=== PATIENT | female | born 1990 | race Caucasian/White ===

== ENCOUNTER 2016-10-14 14:29 | Emergency (ER) | payer OTHER ==
[~2016-10-14] VITALS: Ht 162.6 cm; Wt 84.4 kg
[2016-10-14 14:34] VITALS: TEMP 36.8; Ht 162.6 cm; Wt 84.4 kg
[2016-10-14] MEDS ORDERED: ALBUTEROL HFA 8 GM INHALER INH STA (14:51)
--- NOTE | 2016-10-14 14:51 | EMERGENCY ROOM VISIT NOTE ---
History Report prepared by Norma: Fred Rome Under the Supervision of: Dr. Amanda Lay D.O. First contact with patient: 14:39 Chief Complaint: COUGH Stated Complaint: SEVERE COUGH Nursing Triage Summary: Pt c/o being sick for a week, "[facility] told me I had a nasty cold". Son had strep and pneumonia. Productive cough. History of Present Illness The patient is a 26 year old female who presents to the Emergency Room with complaints of a cough that began 1 week ago. Her cough is productive with yellow and green sputum. Her son recently had strep throat and pneumonia. She had gone to [facility], but they stated she had a cold. Her symptoms then worsened. She has been taking cough medicine and Tylenol that have not been helping. She has been experiencing fevers of 102 F, rhinorrhea, shortness of breath, nausea, and vomiting. She notes that the vomiting and nausea could be secondary to her . She is 22 weeks . She denies any sore throat. Source of History: patient Onset: 1 week ago Position: other (Respiratory System) Symptom Intensity: moderate Quality: other (Cough) Timing: intermittent Associated Symptoms: + fevers, + SOB, + nausea, + vomiting, No sorethroat Note: She has rhinorrhea. She denies any unusual bleeding. Review of Systems See HPI for pertinent positives & negatives. A total of 10 systems reviewed and were otherwise negative. Past Medical & Surgical Medical Problems: (1) Acute Tonsillitis (2) Anxiety State Nos (3) Cholelith W Cholecys Nec (4) Fx Navicular, Wrist-Clos Family History Diabetes mellitus Social History Smoking Status: Current Every Day Smoker Drug Use: none Marital Status: single Housing Status: lives with family Occupation Status: employed Current/Historical Medications Scheduled Amoxicillin & Pot Clavulanate (Augmentin 875-125 mg), 875 MG PO BID Cholecalciferol (Vitamin D), 1,000 UNITS PO DAILY Escitalopram Oxalate (Lexapro), 5 MG PO QAM Multivit/Min/Iron/Fol Ac/Pren ( Vitamin), 1 TAB PO DAILY Allergies Coded Allergies: Adhesives (Verified Allergy, Unknown, RASH, 10/14/16) Morphine (Verified Allergy, Unknown, HIVES, 10/14/16) Physical Exam Vital Signs Date Time Temp Pulse Resp B/P (MAP) Pulse Ox O2 Delivery O2 Flow Rate FiO2 6/18/17 16:37 84 20 128/69 98 Room Air 10/14/16 16:00 80 16 131/68 Room Air 10/14/16 14:36 95 Room Air 10/14/16 14:34 36.8 110 18 111/69 95 Room Air Physical Exam GENERAL: alert, well appearing, well nourished, no distress, non-toxic EYE EXAM: normal conjunctiva, PERRL and EOM's grossly intact OROPHARYNX: no exudate, no erythema, lips, buccal mucosa, and tongue normal and mucous membranes are moist NECK: supple, no nuchal rigidity, no adenopathy, non-tender LUNGS: Clear to auscultation. Normal chest wall mechanics. No wheezing, rhonchi , or rales. HEART: no murmurs, S1 normal and S2 normal ABDOMEN: abdomen soft, non-tender, normo-active bowel sounds, no masses, no rebound or guarding. Palpable fundus at about the level of the umbilicus. Consistent with dates. BACK: Back is symmetrical on inspection and there is no deformity, no midline tenderness, no CVA tenderness. SKIN: no rashes and no bruising UPPER EXTREMITIES: upper extremities are grossly normal. LOWER EXTREMITIES: No pitting edema. NEURO EXAM: Normal sensorium, cranial nerves II-XII grossly intact, normal speech, no gross weakness of arms, no gross weakness of legs. Medical Decision & Procedures Laboratory Results Date/Time Source Procedure Growth Status 10/14/16 15:10 Throat Group A Streptococcus Screen - Final SPECIMEN NEGATIVE FOR GROUP A BETA ST... Complete 10/14/16 15:10 Throat Group A Streptococcus Screen ([facility]) - Final NO BETA STREP. ISOLATED. Complete Medications Administered Medications (Trade) Dose Ordered Sig/Radha Route Start Time Stop Time Status Last Admin Dose Admin Albuterol (Ventolin Hfa Inhaler) 2 puffs NOW STAT INH 10/14/16 14:51 10/14/16 14:52 DC 10/14/16 15:17 2 PUFFS Amoxicillin/ Clavulanate Potassium (Augmentin Tab) 875 mg ONE ONCE PO 10/14/16 16:15 10/14/16 16:16 DC 10/14/16 16:44 875 MG Dexamethasone (Decadron Conc Soln) 10 mg NOW STAT PO 6/18/17 16:36 10/14/16 16:39 DC 10/14/16 16:45 10 MG ED Course 1439: The patient was evaluated in room B6. A complete history and physical exam was performed. 1451: Ordered Albuterol 2 puffs INH 1606: Dexamethasone 10 mg PO 1612: I reassessed the patient at this time. She is doing well. I updated her on her results. We are waiting for a urine dip and medication distribution. 1615: Ordered Augmentin Tab 875 mg PO 1636: Ordered Dexamethasone 10 mg PO 1700: Upon reevaluation, the patient is feeling better. I discussed the findings and the treatment plan with the patient. She verbalizes agreement and understanding. She was discharged home. Medical Decision Differential diagnoses include bronchitis, pneumonia, asthma exacerbation, pharyngitis, and viral URI. Medication Reconciliation: I attest that I have personally reviewed the patient' s current medication list. Blood pressure screening: Patient was found to have normal blood pressure on screening and does not require follow-up. Strep swab negative. Discussed with patient possible utility and chest x-ray, however patient with clear breath sounds, no fever here, patient would like to avoid any radiation during the . Discussed use of antibiotics and trying to cover for possible bronchitis as well as possible interaction with patient's psychiatric medication. Discussed use of her inhalers. Strongly encouraged cessation of tobacco abuse. Discussed continued follow-up with OB/ [employer] as scheduled, patient states today she has had no significant consultations of . Patient with no symptoms here to warrant additional investigation into obstetric abnormality or etiology of symptoms. Patient initially mildly tachycardic, however likely due to dehydration and coughing at the time. Patient improved here. Doubt symptoms related to PE, tamponade, ACS , effusion. Doubt occult infiltrate. Likely given recent sick contacts began as upper respiratory infection which is now progressed been there week. Given persistence of symptoms for greater than 5 days as well as history of tobacco abuse in patient's current status, opted to treat with antibiotics. Patient well-appearing here otherwise, not hypoxic, no increased work of breathing. Patient comfortable with MDI and spacer is given at bedside. Discussed symptoms to watch and return to the ER for, patient verbalized understanding was agreeable with plan. FHT normal, doubt complication acutely. Impression Primary Impression: Acute bronchitis Additional Impressions: URI (upper respiratory infection) Scribe Attestation The scribe's documentation has been prepared under my direction and personally reviewed by me in its entirety. I confirm that the note above accurately reflects all work, treatment, procedures, and medical decision making performed by me. Departure Information Dispostion Home / Self-Care Prescriptions Amoxicillin & Pot Clavulanate (Augmentin 875-125 mg) 1 Tab Tab 875 MG PO BID for 7 Days, TAB Prov: Amanda Lay, DO 10/14/16 Referrals Simone Quintana III, M.D. (PCP) Forms HOME CARE DOCUMENTATION FORM, IMPORTANT VISIT INFORMATION Patient Instructions My [facility] Additional Instructions Please: Follow up with her family doctor this week to assure the your cough and respiratory symptoms are improving. Please continue to monitor for any -related changes including abnormal vaginal discharge or bleeding, or change in pedal movement, or abdominal pain. If you develop any worsening cough , or coughing up blood, develop worsening fevers, worsening trouble breathing, dizziness, abdominal pain, rash or sores, diarrhea, or you have any other new concerns, please return the emergency room. Problem Qualifiers Primary Impression: Acute bronchitis Bronchitis organism: unspecified organism Qualified Codes: J20.9 - Acute bronchitis, unspecified Additional Impressions: URI (upper respiratory infection) URI type: unspecified URI Qualified Codes: J06.9 - Acute upper respiratory infection, unspecified Weeks of gestation: 22 weeks Qualified Codes: Z3A.22 - 22 weeks gestation of
[2016-10-14] MEDS ORDERED: ESCI5TAB PO (14:53)
[2016-10-14] MEDS ORDERED: PRENTAB26 PO (14:53)
[2016-10-14] MEDS ORDERED: CHOL100010 PO (14:53)
[2016-10-14] MEDS ORDERED: DEXAMETHASONE CONC 1 MG/ML 30 ML PO STA ×2 (16:06→16:36)
[2016-10-14] MEDS ORDERED: AMOXICILLIN/CLAVULANATE TAB 875 MG TAB PO ONE (16:15)
[2016-10-14 16:37] VITALS: BP 128/69; PULSE 84; O2SAT 98
[2016-10-14] MEDS ORDERED: AMOX875T PO (16:46)
== END 2016-10-14 16:50 | disposition home or self-care (01) ==
LOC: C.EDB 14:30
DX: O26.92 Pregnancy related conditions, unspecified, second trimester (principal); J20.9 Acute bronchitis, unspecified; J06.9 Acute upper respiratory infection, unspecified; F41.9 Anxiety disorder, unspecified; F17.200 Nicotine dependence, unspecified, uncomplicated; Z87.81 Personal history of (healed) traumatic fracture; Z79.899 Other long term (current) drug therapy; Z88.5 Allergy status to narcotic agent; Z91.09 Other allergy status, other than to drugs and biological substances; Z83.3 Family history of diabetes mellitus

== ENCOUNTER 2016-10-17 22:44 | Emergency (ER) | payer OTHER ==
[~2016-10-17] VITALS: Ht 162.6 cm; Wt 86.7 kg
[~2016-10-17 22:44] MED LIST: AMOX875T PO; CHOL100010 PO; ESCI5TAB PO; PRENTAB26 PO
[2016-10-17 22:48] VITALS: TEMP 36.6; Ht 162.6 cm; Wt 86.7 kg
[2016-10-17] MEDS ORDERED: ALBUT/IPRATROP 3MG/0.5MG NEB 3 ML VIAL INH STA (23:31)
[2016-10-17] MEDS ORDERED: HYDROCODONE/HOMATROPINE SYRUP 5MG/1.5MG 5ML UDP PO STA (23:33)
[2016-10-18 00:41] VITALS: BP 118/69; PULSE 91; O2SAT 98
[2016-10-18] MEDS ORDERED: HYCODAN 60ML BOTTLE HOMEPACK PO ONE (00:45)
--- NOTE | 2016-10-18 01:37 | EMERGENCY ROOM VISIT NOTE ---
History Report prepared by Norma: Patrick Calero Under the Supervision of: Dr. Con Baldwin M.D. First contact with patient: 23:13 Chief Complaint: COUGH Stated Complaint: NAUSEA, COUGHING, PAIN LT SIDE Nursing Triage Summary: Pt c/o productive cough, ongoing for 2 weeks. pain to left side with coughing. "it's now in my ribs when I cough, I can't lay down and I can't rest'. reports she was seen her several days ago for the same. pt on abx, steroid, inhaler. no relief. 22 weeks . History of Present Illness The patient is a 26 year old gravid female who presents to the Emergency Room with complaints of coughing for the past two weeks. The patient was diagnosed with bronchitis three days ago and started on Augmentin. The patient's cough has persisted. The cough is worse when she is laying on her left side. The patient also complains of sharp pain on the left side of her back and rib area with coughing and deep breathing. She denies fevers, sore throat, chest pain, nausea, vomiting, diarrhea, UTI symptoms, or vaginal bleeding. The patient is 22 weeks . The patient does not have any complaints related to the . She did not have an X-ray when she was diagnosed with bronchitis. The patient does not use inhalers for asthma, but she was given an inhaler for the bronchitis. Source of History: patient Onset: two weeks ago Position: other (respiratory) Quality: other (cough) Timing: other (persistent) Modifying Factors (Worsening): other (laying on left side) Associated Symptoms: + back pain, No fevers, No sorethroat, No chest pain, No nausea, No vomiting, No diarrhea, No urinary symptoms Review of Systems See HPI for pertinent positives & negatives. A total of 10 systems reviewed and were otherwise negative. Past Medical & Surgical Medical Problems: (1) Acute Tonsillitis (2) Anxiety State Nos (3) Cholelith W Cholecys Nec (4) Fx Navicular, Wrist-Clos Family History Diabetes mellitus Social History Smoking Status: Current Every Day Smoker Drug Use: none Marital Status: single Housing Status: lives with family Occupation Status: employed Current/Historical Medications Scheduled Amoxicillin & Pot Clavulanate (Augmentin 875-125 mg), 875 MG PO BID Cholecalciferol (Vitamin D), 1,000 UNITS PO DAILY Escitalopram Oxalate (Lexapro), 5 MG PO QAM Multivit/Min/Iron/Fol Ac/Pren ( Vitamin), 1 TAB PO DAILY Allergies Coded Allergies: Adhesives (Verified Allergy, Unknown, RASH, 10/17/16) Morphine (Verified Allergy, Unknown, HIVES, 10/17/16) Physical Exam Vital Signs Date Time Temp Pulse Resp B/P (MAP) Pulse Ox O2 Delivery O2 Flow Rate FiO2 10/18/16 00:41 91 16 118/69 98 Room Air 10/17/16 22:52 96 Room Air 10/17/16 22:48 36.6 96 18 113/73 96 Room Air Physical Exam GENERAL: Patient is in no acute distress. Dry cough noted. HEENT: No acute trauma, normocephalic atraumatic, mucous membranes moist, no nasal congestion, no scleral icterus. NECK: No stridor, no adenopathy, no meningismus, trachea is midline. LUNGS: Clear to auscultation bilaterally, no wheeze, no rhonchi, breath sounds equal. HEART: Without murmurs gallops or rubs, regular rate and rhythm. CHEST: Tender along the left chest wall, no rash no crepitus. ABDOMEN: Soft, nontender, bowel sounds positive, no hernias, no peritonitis. EXTREMITIES: No cyanosis or edema, full range of motion of all the joints without pain or difficulty, no signs for acute trauma. NEUROLOGIC: Oriented x 3, no acute motor or sensory deficits, no focal weakness. SKIN: No rash, no jaundice, no diaphoresis. Medical Decision & Procedures ER Provider Diagnostic Interpretation: X-ray results as stated below per interpretation by me. Chest One View Portable: No pneumonia, pneumothorax, CHF, or pleural effusion. Medications Administered Medications (Trade) Dose Ordered Sig/Radha Route Start Time Stop Time Status Last Admin Dose Admin Albuterol/ Ipratropium (Duoneb) 3 ml NOW STAT INH 10/17/16 23:31 10/17/16 23:32 DC 10/17/16 23:37 3 ML Hydrocodone Bit/ Homatropine Methylb (Hycodan Syrup) 5 ml NOW STAT PO 10/17/16 23:33 10/17/16 23:34 DC 10/17/16 23:38 5 ML Hydrocodone Bit/ Homatropine Methylb (Hycodan Elix Homepack 5/1.5MG/ 5ML) 1 homepack UD ONCE PO 10/18/16 00:45 10/18/16 00:46 DC 10/18/16 00:42 1 HOMEPACK ED Course 2315: The patient was evaluated by the [facility] medical student. 2328: The patient was evaluated in room C3. A complete history and physical exam was performed. 2331: DuoNeb 3 ml INH. 2333: Hycodan 5 ml PO. 0040: Reassessed the patient. She appeared more comfortable and was not coughing. She will be prepared discharge. 0045: Hycodan homepack 5/1.5 mg / ml PO. Medical Decision Differential diagnosis includes bronchitis or pneumonia, musculoskeletal pain, pneumothorax, asthma. Blood Pressure Screening: Patient was found to have normal blood pressure on screening and does not require follow-up. Medication Reconciliation: I attest that I have personally reviewed the patient' s current medication list. The patient presents with left-sided chest pain with coughing and with palpation. She was recently diagnosed with bronchitis. She is not hypoxic, she is not toxic. She was given a DuoNeb and Hycodan orally. She feels improved. Chest film does not show pneumonia, CHF or pneumothorax. The patient has bronchitis and has musculoskeletal chest pain from all the coughing. She did well with Hycodan and will be discharged on this for symptom control. She was reassured and discharged home. Impression Primary Impression: Acute bronchitis Additional Impressions: Left sided chest pain Scribe Attestation The scribe's documentation has been prepared under my direction and personally reviewed by me in its entirety. I confirm that the note above accurately reflects all work, treatment, procedures, and medical decision making performed by me. Departure Information Dispostion Home / Self-Care Referrals Simone Quintana III, M.D. (PCP) Forms HOME CARE DOCUMENTATION FORM, IMPORTANT VISIT INFORMATION Patient Instructions My [facility] Additional Instructions hycodan 1 tsp every 4 hours for cough as needed continue the augmentin and albuterol inhaler may use tessalon perles for cough as well stay well hydrated heat to the chest wall may help return if worsening chest film today was ok Problem Qualifiers Primary Impression: Acute bronchitis Bronchitis organism: unspecified organism Qualified Codes: J20.9 - Acute bronchitis, unspecified Additional Impressions: Weeks of gestation: 22 weeks Qualified Codes: Z3A.22 - 22 weeks gestation of
--- NOTE | 2016-10-18 06:59 | DIAGNOSTIC IMAGING REPORT ---
CHEST ONE VIEW PORTABLE CLINICAL HISTORY: cough, dyspnea COMPARISON STUDY: 02/13/2016 FINDINGS: The bones soft tissues and hemidiaphragms are normal. The cardiomediastinal silhouette is normal. The lungs are clear. The pulmonary vasculature is normal. IMPRESSION: Negative chest. Electronically signed by: Nicholas Person M.D. 10/18/2016 6:58 AM Dictated Date/Time: 10/18/2016 6:58 AM
== END 2016-10-18 00:45 | disposition home or self-care (01) ==
LOC: C.EDB 22:45 → C.EDC 10-18 00:45
DX: O99.512 Diseases of the respiratory system complicating pregnancy, second trimester (principal); J20.9 Acute bronchitis, unspecified; Z3A.22 22 weeks gestation of pregnancy; O99.332 Smoking (tobacco) complicating pregnancy, second trimester; F41.9 Anxiety disorder, unspecified; Z79.899 Other long term (current) drug therapy; F17.210 Nicotine dependence, cigarettes, uncomplicated

== ENCOUNTER 2016-11-29 15:50 | Outpatient (CLI) | payer OTHER ==
[~2016-11-29 15:50] MED LIST changes: -AMOX875T PO
--- NOTE | 2016-11-29 16:41 | Discharge Instructions ---
Discharge Instructions Date of Service Nov 29, 2016. Admission Reason for Admission: NST Discharge Discharge Diagnosis / Problem: dec Fetral movement Discharge Goals Goal(s): Continuing OB care Activity Recommendations Activity Limitations: resume your previous activity ACTIVITY RECOMMENDATIONS: See Labor Sheet. SPECIAL CARE INSTRUCTIONS: Call Doctor if: * Regular contractions every 5 minutes or greater than contractions in one hour. * Bleeding * Water breaks or is leaking * Decreased movement * Fever >100.4 degrees F * Pain not relieved by routine measures or pain medication ordered. FOLLOW UP VISIT: Return to Labor and Delivery on for /call for appointment time . Follow-up Visit with: When: . Current Hospital Diet Patient's current hospital diet: Discharge Diet Recommended Diet: Regular Diet Pending Studies Studies pending at discharge: no Medical Emergencies . Who to Call and When: Medical Emergencies: If at any time you feel your situation is an emergency, please call 911 immediately. . Non-Emergent Contact Non-Emergency issues call your: Specialist . . "Provider Documentation" section prepared by Oneal Cooney. . VTE Core Measure Inpt VTE Proph given/why not?: Treatment not indicated
== END 2016-11-29 16:45 | disposition home or self-care (01) ==
LOC: C.OPB 15:50 → C.LD 15:50 → C.OPB 16:45
PROVIDERS: ATTEND Obstetrics & Gynecology
DX: O36.8120 Decreased fetal movements, second trimester, not applicable or unspecified (principal); Z3A.27 27 weeks gestation of pregnancy

== ENCOUNTER 2017-01-13 20:14 | Emergency (ER) | payer SELFPAY ==
[~2017-01-13] VITALS: Ht 163.8 cm; Wt 90.5 kg
[2017-01-13 20:17] VITALS: Ht 163.8 cm; Wt 90.5 kg
[2017-01-13] MEDS ORDERED: AMX500 PO (21:08)
[2017-01-13] MEDS ORDERED: PRENTAB26 PO (21:08)
[2017-01-13] MEDS ORDERED: ESCI1TAB6 PO (21:08)
[2017-01-13] MEDS ORDERED: ALBUT/IPRATROP 3MG/0.5MG NEB 3 ML VIAL INH STA (22:01)
[2017-01-13] MEDS ORDERED: HYDROCODONE/HOMATROPINE SYRUP 5MG/1.5MG 5ML UDP PO STA (22:23)
[2017-01-13] MEDS ORDERED: HYCODAN 60ML BOTTLE HOMEPACK PO ONE (22:30)
[2017-01-13 22:35] VITALS: BP 119/62; PULSE 91; TEMP 36.6; O2SAT 99
--- NOTE | 2017-01-14 01:44 | EMERGENCY ROOM VISIT NOTE ---
History Report prepared by Norma: Fior Dixon Under the Supervision of: Dr. Simone Pak M.D. First contact with patient: 20:48 Chief Complaint: COUGH Stated Complaint: COUGHING,SOB,CHEST PAIN Nursing Triage Summary: Pt has had cough for the past few days, went to PCP and was given an inhaler. Has had no relief tonight and patient feels it going to her chest. History of Present Illness The patient is a 27 year old female who presents to the Emergency Room with complaints of a worsening cough starting a few days ago. The patient states that she can feel "junk" in her throat and chest. She states that when she coughs, nothing comes up. She reports that she has been Amoxicillin for a sinus infection 3 days ago by her PCP. She states that she does have an inhaler at home that has offered no relief. The patient notes that she is 35 weeks . Pt denies LOC, headache, fevers, chills, diaphoresis, visual changes, neck pain, chest pain, breathing difficulties, nausea, vomiting, abdominal pain , back pain, melena, hematochezia, urinary symptoms, numbness, weakness, lymphadenopathy, rash, or other complaints. Source of History: patient Onset: a few days ago Position: other (global) Quality: other (global) Timing: worsening Note: The patient complains of congestion. Review of Systems See HPI for pertinent positives and negatives. A total of ten systems were reviewed and were otherwise negative. Past Medical & Surgical Medical Problems: (1) Acute Tonsillitis (2) Anxiety State Nos (3) Cholelith W Cholecys Nec (4) Fx Navicular, Wrist-Clos Family History Diabetes mellitus Social History Smoking Status: Current Every Day Smoker Drug Use: none Marital Status: single Housing Status: lives with family Occupation Status: employed Current/Historical Medications Scheduled Amoxicillin (Amoxicillin), 500 MG PO BID Escitalopram Oxalate (Lexapro), 5 MG PO DAILY Multivit/Min/Iron/Fol Ac/Pren ( Vitamin), 1 TAB PO DAILY Allergies Coded Allergies: Adhesives (Verified Allergy, Unknown, RASH, 01/13/17) Morphine (Verified Allergy, Unknown, HIVES, 01/13/17) Physical Exam Vital Signs Date Time Temp Pulse Resp B/P (MAP) Pulse Ox O2 Delivery O2 Flow Rate FiO2 01/13/17 22:35 36.6 91 18 119/62 99 01/13/17 22:06 85 18 119/62 100 Room Air 01/13/17 20:17 36.6 97 20 121/76 96 Room Air Physical Exam GENERAL: Awake, alert, well-appearing, in no distress HENT: Normocephalic, atraumatic. Oropharynx unremarkable. EYES: Normal conjunctiva. Sclera non-icteric. NECK: Supple. No nuchal rigidity. FROM. No JVD. RESPIRATORY: Clear to auscultation. Frequent cough present. CARDIAC: Regular rate, normal rhythm. Extremities warm and well perfused. Pulses equal. ABDOMEN: Soft, non-distended. No tenderness to palpation. No rebound or guarding. No masses. Gravid abdomen. RECTAL: Deferred. MUSCULOSKELETAL: Chest examination reveals no tenderness. The back is symmetrical on inspection without obvious abnormality. There is no CVA tenderness to palpation. No joint edema. LOWER EXTREMITIES: Calves are equal size bilaterally and non-tender. No edema. No discoloration. NEURO: Normal sensorium. No sensory or motor deficits noted. SKIN: No rash or jaundice noted. Medical Decision & Procedures Medications Administered Medications (Trade) Dose Ordered Sig/Radha Route Start Time Stop Time Status Last Admin Dose Admin Albuterol/ Ipratropium (Duoneb) 3 ml NOW STAT INH 01/13/17 22:01 01/13/17 22:02 DC 01/13/17 22:05 3 ML Hydrocodone Bit/ Homatropine Methylb (Hycodan Elix Homepack 5/1.5MG/ 5ML) 1 homepack UD ONCE PO 01/13/17 22:30 01/13/17 22:31 DC 01/13/17 22:37 1 HOMEPACK Hydrocodone Bit/ Homatropine Methylb (Hycodan Syrup) 5 ml NOW STAT PO 01/13/17 22:23 01/13/17 22:25 DC 01/13/17 22:37 5 ML ED Course 2115: The patient was evaluated in room B3. A complete history and physical exam was performed. 2200: Ordered Duoneb 3 ml INH. 2210: I spoke with Dr. Wilmer JACOB and he agrees with the treatment plan. 2215: I reevaluated the patient and she feels better after the nebulizer. She notes she didn't drive here 2223: Ordered Hycodan Syrup 5 ml PO. 7: I reevaluated the patient. Discussed results and discharge instructions: she verbalized understanding and agreement. The patient is ready for discharge. 2230: Ordered Hydrocodone Bit/ Homatropine Methylb 1 homepack PO. Medical Decision Triage Nursing notes reviewed. The patient's presentation and history were concerning for respiratory symptoms of . She has had no vaginal bleeding or abdominal pain. She feels the baby moving. Etiologies such as Bronchitis, sinusitis, pneumonia, reactive airway disease, CHF, infections, gastrointestinal, as well as others were entertained. The patient was evaluated. She was congested. She had a cough. She does remain issue really is the fact that she cannot sleep or lay down because she coughs so much. She has no chest pain. She is in no respiratory distress. She has no stigmata CHF. I do not think she has any issues with PE or cardiomyopathy. The patient was just started on amoxicillin. She was given a DuoNeb treatment. She notes having been treated successfully in the past like this with Hycodan. I did talk to Dr. Mares from [facility]. He felt it was reasonable to treat her symptomatically with the bronchodilator, amoxicillin, and Hycodan. And have her follow-up with her primary physician. The patient was given Hycodan. After the nebulizer treatment she felt better. She is already on amoxicillin. I did consider switching her to Zithromax however there would be medication interactions with her outpatient prescription and she notes having bad yeast infections in the past on Zithromax. As she is doing well and has no significant rales on her pulmonary examination and believe continuing the amoxicillin is not unreasonable. The patient felt comfortable with this. She will follow-up this week with her primary office. If she worsens in any way she will be back. By the evaluation outlined above other emergent etiologies such as those listed in the differential, as well as others, were deemed relatively unlikely. The patient was educated about the findings as listed above. All questions were answered and the patient was pleased with the treatment. Return instructions were outlined and the patient was discharged in stable condition. The patient was referred to her PCP for follow-up for a recheck of the current condition. Impression Primary Impression: Productive cough Scribe Attestation The scribe's documentation has been prepared under my direction and personally reviewed by me in its entirety. I confirm that the note above accurately reflects all work, treatment, procedures, and medical decision making performed by me. Departure Information Dispostion Home / Self-Care Referrals Simone Quintana III, M.D. (PCP) Forms HOME CARE DOCUMENTATION FORM, IMPORTANT VISIT INFORMATION Patient Instructions My [facility] Additional Instructions Albuterol Inhaler: Take 2 puffs four times daily for five days, then as needed. Acetaminophen(Tylenol) may be used for fever or pain. Use 1000mg every six hours as needed. Avoid using more than 4000mg in a 24 hour period. Continue amoxicillin. Stop smoking Rest and drink plenty of fluids. Avoid smoke/smoking, fumes, dust, or any triggers in the past that may have affected your breathing. Continue current medications. Return to the ER for chest pain, difficulty breathing, fevers, vomiting, worsening of your condition, or as needed. Follow up with your primary physician this week for a recheck of your current condition.
== END 2017-01-13 22:41 | disposition home or self-care (01) ==
LOC: C.EDB 20:15
DX: R05 Cough (principal); F41.9 Anxiety disorder, unspecified; Z83.3 Family history of diabetes mellitus; F17.200 Nicotine dependence, unspecified, uncomplicated

== ENCOUNTER 2017-02-18 21:10 | Outpatient (CLI) | payer OTHER ==
[~2017-02-18 21:10] MED LIST changes: +AMX500 PO; -CHOL100010 PO; +ESCI1TAB6 PO; -ESCI5TAB PO
[2017-02-19] MEDS ORDERED: IV FLUIDS COMPLETED PRN (01:00)
--- NOTE | 2017-02-20 08:39 | EDITING REQUIRED CODING QUERY ---
DIAGNOSIS NEEDED To promote full compliance with coding requirements relating to patient care, physician participation is requested in all cases of purchasing internship uncertainty. Please assist us with the question(s) below: Coding Question: The patient received care in labor and delivery on 02/18/17 as noted within the record. Please document the diagnosis that is being addressed by the medication/treatment. Provider Response: DIAGNOSIS: Labor check WEEKS OF GESTATION: 39 weks Thank you for your assistance, Tamra Moore
== END 2017-02-18 23:39 | disposition home or self-care (01) ==
LOC: C.OPB 21:10 → C.LD 21:10 → C.OPB 23:39
PROVIDERS: ATTEND Obstetrics & Gynecology
DX: Z34.83 Encounter for supervision of other normal pregnancy, third trimester (principal); Z3A.39 39 weeks gestation of pregnancy

== ENCOUNTER 2017-02-22 07:52 | Inpatient (IN) | payer OTHER ==
[~2017-02-22] VITALS: Ht 162.6 cm; Wt 93.4 kg
[2017-02-22 08:41] VITALS: Ht 162.6 cm; Wt 93.4 kg
[2017-02-22] MEDS ORDERED: LACTATED RINGER'S 1000ML 1,000 ML IV PRN (09:23)
[2017-02-22] MEDS ORDERED: LACTATED RINGER'S 1000ML 1,000 ML IV SCH ×2 (09:23→21:14)
--- NOTE | 2017-02-22 09:29 | Progress Note ---
Progress Note Date of Service Feb 22, 2017. Progress Note Admit Note 27 F P1021 at 40.1 weeks admitted for induction of labor for post-dates . Cervix 3/50/-2/vertex/anterior/soft. EFW 7#. GBS is negative. Will start induction with vaginal Cytotec 25 mcg. Urine drug screen due to history of drug use in with marijuana. Anticipate vaginal delivery.
[2017-02-22] MEDS ORDERED: MISOPROSTOL 25 MCG TAB PV ONE (09:30)
[2017-02-22 09:43] LABS: HEMATOCRIT 34.6 % (37-47); MEAN CELL VOLUME 88.5 fL (80-100); MEAN CORPUSCULAR HEMOGLOBIN 29.4 pg (25-34); MEAN CORPUSCULAR HGB CONC 33.2 g/dl (32-36); MEAN PLATELET VOLUME 11.2 fL (7.4-10.4); PLATELET COUNT 307 K/uL (130-400); RED BLOOD COUNT 3.91 M/uL (4.2-5.4); WHITE BLOOD COUNT 15.83 K/uL (4.8-10.8)
[2017-02-22 10:02] LABS: BENZODIAZEPINE, URINE NEG (NEG); COCAINE,URINE NEG (NEG); PHENCYCLIDINE, URINE NEG (NEG)
[2017-02-22] MEDS ORDERED: LACTATED RINGER'S 1000ML 500 ML IV PRN ×2 (13:49→15:00)
[2017-02-22] MEDS ORDERED: OXYTOCIN 30 UNITS/500ML NSS IV PRN ×2 (14:00→21:15)
[2017-02-22] MEDS ORDERED: FENTANYL 2MCG/ML ROPIV 1.25MG/ML 100ML BAG EPI ONE (14:16)
[2017-02-22] MEDS ORDERED: EpHEDrine SULFATE INJ 50 MG/ML AMP ONE (14:16)
[2017-02-22] MEDS ORDERED: BUPIVACAINE 0.25% 30 ML VIAL ONE (14:16)
[2017-02-22] MEDS ORDERED: FENTANYL CITRATE INJ 50 MCG/1 ML 2 ML VIAL ONE (14:16)
[2017-02-22] MEDS ORDERED: NALOXONE HCL INJ 0.4 MG/1 ML VIAL/CARP IV PRN (15:00)
[2017-02-22] MEDS ORDERED: NALOXONE HCL INJ 1 MG in SODIUM CHLORIDE 0.9% 1000ML 1,000 ML IV PRN (15:00)
[2017-02-22] MEDS ORDERED: DiphenhydrAMINE HCL 50 MG/ML VIAL IV PRN (15:00)
[2017-02-22] MEDS ORDERED: FENTANYL 2MCG/ML ROPIV 1.25MG/ML 100ML BAG EPI PRN (15:00)
[2017-02-22] MEDS ORDERED: NALBUPHINE HCL INJ 10 MG/ML AMP IV PRN (15:00)
[2017-02-22] MEDS ORDERED: ONDANSETRON INJ 2 MG/ML 2 ML VIAL IV PRN (15:00)
[2017-02-22] MEDS ORDERED: EpHEDrine SULFATE INJ 50 MG/ML AMP IV PRN (15:00)
[2017-02-22] MEDS ORDERED: MEASLES, MUMPS & RUBELLA VIRUS VIAL SQ. ONE (21:15)
[2017-02-22] MEDS ORDERED: DIPHTHERIA/TETANUS/PERTUSSIS 0.5 ML SYR/VIAL IM. ONE (21:15)
--- NOTE | 2017-02-22 21:19 | Vaginal Delivery Summary ---
Vaginal Delivery Summary live female over intact perineum MARSHA with Apgars 8/9 weight pending. Delayed cord clamping followed by cord blood and spontaneous delivery of intact placenta. No tears. EBL 200 ml. Mom and baby stable.
[2017-02-22] MEDS: IBUPROFEN 600 MG TAB PO PRN (23:18)
[2017-02-22 23:45] VITALS: BP 104/62; PULSE 89; TEMP 36.7; O2SAT 94
[2017-02-23] MEDS: ACETAMINOPHEN 325 MG TAB PO PRN ×3 (00:21→14:15)
[2017-02-23 03:20] VITALS: BP 101/66; PULSE 72; TEMP 36.8; O2SAT 99
[2017-02-23 07:10] LABS: HEMATOCRIT 32.5 % (37-47)
[2017-02-23] MEDS: PRENATAL VITAMIN TAB PO SCH (07:55)
[2017-02-23] MEDS: DOCUSATE SODIUM 100 MG CAP PO SCH ×2 (07:55→19:46)
[2017-02-23] MEDS: IBUPROFEN 600 MG TAB PO PRN ×3 (07:56→18:48)
--- NOTE | 2017-02-23 07:58 | Anesthesia Procedure Note ---
Anesthesia Epidural Removal Nt Date & Time Feb 23, 2017 at 07:58 Vital Signs Pain Intensity: 4.0 Vital Signs Past 12 Hours Date Time Temp Pulse Resp B/P (MAP) Pulse Ox O2 Delivery O2 Flow Rate FiO2 02/23/17 03:20 36.8 72 18 101/66 (78) 99 Room Air 02/22/17 23:45 94 Room Air 02/22/17 23:45 36.7 89 18 104/62 (76) 94 Room Air Notes Mental Status: alert / awake / arousable, participated in evaluation Nausea / Vomiting: adequately controlled Pain: adequately controlled Airway Patency, RR, SpO2: stable & adequate BP & HR: stable & adequate Hydration State: stable & adequate Neuraxial Anesthesia: was administered, sensory block is resolved Anesthetic Complications: no major complications apparent, pt satisfied with anesthetic care Epidural: removed without complications, with tip intact
[2017-02-23 08:00] VITALS: BP 103/66; PULSE 77; TEMP 36.6
--- NOTE | 2017-02-23 08:19 | OB/GYN Progress Note ---
COMMAND AND CONTROL SYSTEMS INTEGRATOR Progress Note Date of Service: Feb 23, 2017. Patient is seen and examined. She feels well, no complaints. Ambulating without dizziness Voiding without difficulty Tolerating regular diet with out N&V Bleeding is minimal No fever/ chills/ CP/ SOB/ N&V/ Leg pain Date Time Temp Pulse Resp B/P (MAP) Pulse Ox O2 Delivery O2 Flow Rate FiO2 02/23/17 03:20 36.8 72 18 101/66 (78) 99 Room Air 02/22/17 23:45 94 Room Air 02/22/17 23:45 36.7 89 18 104/62 (76) 94 Room Air Last 24 Hours Test 02/22/17 09:34 02/23/17 06:40 White Blood Count 15.83 K/uL Red Blood Count 3.91 M/uL Hemoglobin 11.5 g/dL 10.8 g/dL Hematocrit 34.6 % 32.5 % Mean Corpuscular Volume 88.5 fL Mean Corpuscular Hemoglobin 29.4 pg Mean Corpuscular Hemoglobin Concent 33.2 g/dl RDW Standard Deviation 47.2 fL RDW Coefficient of Variation 14.7 % Platelet Count 307 K/uL Mean Platelet Volume 11.2 fL PE: General: Alert, orientedx3, NAD Abd: soft, NT, fundus firm, below Umbilicus Perineum intact, Lochia rubra minimal Ext; NT, no edema AP: 27 yo s/p , ppd# 1 VSS Afebrile doing well Continue routine care All questions were answered D/C home tomorrow
[2017-02-23 12:00] VITALS: BP 121/69; PULSE 81; TEMP 36.6
[2017-02-23 16:05] VITALS: BP 122/67; PULSE 67; TEMP 36.3
[2017-02-23 19:50] VITALS: BP 121/66; PULSE 82; TEMP 36.5; O2SAT 99
[2017-02-23] MEDS ORDERED: BISACODYL 5 MG TABEC PO SCH (20:00)
[2017-02-23 23:25] VITALS: BP 125/70; PULSE 87; TEMP 36.9
[2017-02-24 06:34] LABS: BASO % 0.3 %; BASO ABS # 0.05 K/uL (0-0.2); COMPLETE YES; HEMATOCRIT 34.7 % (37-47); IG% 0.6 %; LYMPH % 26.3 %; LYMPH ABS # 4.87 K/uL (1.2-3.4); MEAN CELL VOLUME 88.7 fL (80-100); MEAN CORPUSCULAR HEMOGLOBIN 29.7 pg (25-34); MEAN CORPUSCULAR HGB CONC 33.4 g/dl (32-36); MEAN PLATELET VOLUME 11.1 fL (7.4-10.4); MONO % 6.7 %; NEUT % 64.1 %; PLATELET COUNT 325 K/uL (130-400); RED BLOOD COUNT 3.91 M/uL (4.2-5.4); WHITE BLOOD COUNT 18.55 K/uL (4.8-10.8)
[2017-02-24] MEDS ORDERED: BISACODYL 10 MG SUPP PR PRN (07:00)
[2017-02-24] MEDS ORDERED: MTR600X PO (07:34)
--- NOTE | 2017-02-24 07:34 | OB/GYN Progress Note ---
QUALITY ASSURANCE MONITOR Progress Note Date of Service: Feb 24, 2017. Patient is seen and examined. She feels well, no complaints. Ambulating without dizziness Voiding without difficulty Tolerating regular diet with out N&V Bleeding is minimal No fever/ chills/ CP/ SOB/ N&V/ Leg pain Breast and bottle feeding without problems Date Time Temp Pulse Resp B/P (MAP) Pulse Ox O2 Delivery O2 Flow Rate FiO2 02/23/17 23:25 Room Air 02/23/17 23:25 36.9 87 18 125/70 (88) Room Air 02/23/17 19:50 36.5 82 16 121/66 (84) 99 Room Air 02/23/17 16:05 36.3 67 18 122/67 (85) Room Air 02/23/17 16:05 Room Air 02/23/17 12:00 36.6 81 16 121/69 (86) Room Air 02/23/17 08:00 36.6 77 16 103/66 (78) Room Air 02/23/17 08:00 Room Air Test 02/22/17 00:00 02/22/17 09:34 02/23/17 06:40 02/24/17 06:16 Urine Opiates Screen NEG Urine Methadone, Qualitative NEG Urine Barbiturates NEG Urine Phencyclidine (PCP) Level NEG Ur Amphetamine/Methamphetamine NEG MDMA (Ecstasy) Screen NEG Urine Benzodiazepines Screen NEG Urine Cocaine Metabolite NEG Urine Marijuana (THC) NEG White Blood Count 15.83 H 18.55 H Red Blood Count 3.91 L 3.91 L Hemoglobin 11.5 L 10.8 L 11.6 L Hematocrit 34.6 L 32.5 L 34.7 L Mean Corpuscular Volume 88.5 88.7 Mean Corpuscular Hemoglobin 29.4 29.7 Mean Corpuscular Hemoglobin Concent 33.2 33.4 RDW Standard Deviation 47.2 H 48.2 H RDW Coefficient of Variation 14.7 H 15.0 H Platelet Count 307 325 Mean Platelet Volume 11.2 H 11.1 H Neutrophils (%) (Auto) 64.1 Lymphocytes (%) (Auto) 26.3 Monocytes (%) (Auto) 6.7 Eosinophils (%) (Auto) 2.0 Basophils (%) (Auto) 0.3 Neutrophils # (Auto) 11.90 H Lymphocytes # (Auto) 4.87 H Monocytes # (Auto) 1.24 H Eosinophils # (Auto) 0.38 Basophils # (Auto) 0.05 Immature Granulocyte % (Auto) 0.6 Immature Granulocyte # (Auto) 0.11 H PE: General: Alert, orientedx3, NAD Abd: soft, NT, fundus firm, below Umbilicus Perineum intact, Lochia rubra minimal Ext; NT, no edema AP: 27 yo s/p , ppd# 2 VSS Afebrile doing well Continue routine care All questions were answered Instructions were given when to call D/C home , f/u in office
[2017-02-24 07:35] VITALS: BP 123/78; PULSE 88; TEMP 36.7
--- NOTE | 2017-02-24 07:35 | Discharge Instructions ---
Discharge Instructions Date of Service Feb 24, 2017. Admission Reason for Admission: Induction Discharge Discharge Diagnosis / Problem: Discharge Goals Goal(s): Routine recovery after delivery Medications Continue Dispensed Medications: supercream, lansinoh Activity Recommendations Activity Limitations: as noted below ACTIVITY RECOMMENDATIONS: * Gradual return to full activity over the next 2-3 weeks. * No lifting - nothing heavier than baby over the next 2-3 weeks. * Do not engage in vigorous exercise, sexual activity or sports until cleared by your physician. * Do not drive or operate any motorized equipment until cleared by your physician. * You may shower/bathe daily. BREAST CARE: If you are not breast feeding: * Wear a supportive bra 24 hours a day for one to two weeks. * Avoid stimulating your breasts and nipples as much as possible during the first few weeks after delivery. * When taking a shower, have the warm water hit your back, not breasts. * When your breasts feel full, apply ice packs. Usually three to four times a day helps ease the discomfort. * Take a mild pain medication (Tylenol/Motrin) when you are uncomfortable. If breast feeding: * Use breast milk to lubricate nipples. Lansinoh cream may be used for sore nipples. You do not need to remove cream prior to breast feeding. If using a different brand of cream, check the label for directions regarding removal of cream prior to nursing. * Wear a supportive bra. * If having problems with breasts or breast feeding, call a client consultant or your health care provider. EPISIOTOMY CARE: After delivery, if you have an episiotomy (stitches), the following steps will ease discomfort and aid healing. * For the first 24 hours after delivery, place ice packs next to your episiotomy to help reduce swelling. * After the first 24 hour-period, sitz baths, either portable or in the tub, are suggested. A shower with a shower arm sprayed over the episiotomy may be comforting. * Fiona care should be done after each voiding and bowel movement. Squirt warm water from a plastic bottle over the perineum (region of the body between the anus and urinary opening) and pat dry. * Use Dermoplast to ease discomfort. Shake container. [place] directly over the episiotomy. * Place a Tucks on a clean sanitary pad next to your episiotomy. OVER THE COUNTER MEDICATION: * For discomfort or pain, you may use Acetaminophen (Tylenol), Ibuprofen (Advil ), or Naproxen (Aleve) following the package directions. * For constipation you may use Colace following the package directions. SPECIAL CARE INSTRUCTIONS: When you are discharged from the hospital, it is important for you to follow the instructions listed below: * During the first week at home, you should be able to care for yourself and your baby. In addition, the usual light household activities are encouraged. * Limit your activities to the way you feel. Do not try to clean the house or move furniture. Be sensible. * If you actively engage in sports and have done so up until the time of your delivery, you may resume these activities as soon as you feel able. This may take up to one month or even longer. Use good judgment. * Continue to take your vitamins for at least six weeks after the of your baby. * Your diet need not be limited unless you were on a special diet before your delivery. Breast-feeding mothers need around 2500 calories per day and at least 64-80 ounces of fluid per day (8 to 10 glasses). * You should eat foods from the four major food groups. Crash diets or fad diets are to be avoided. Eating lean meats, fresh fruits and vegetables, low-fat dairy products, high fiber foods and a regular exercise program, will help you get back to your pre- weight without putting your health at risk. * Constipation is sometimes a problem after delivery. Take a mild laxative as needed. If breast feeding, Milk of Magnesia is acceptable to use. You may use a suppository or Fleets enema if no episiotomy. * A daily shower or tub bath is suggested. Be sure to thoroughly and gently dry the perineum. * A bloody vaginal discharge will usually continue until around four weeks post . A small amount of bleeding may continue for as long as six weeks. Vaginal discharge changes from the bright red bleeding after delivery to pink then brownish and finally yellowish-pink before becoming white and disappearing. * Bleeding may increase with activity. Your first period may come in 4-8 weeks. If you are breast feeding, your period may be delayed even longer. * [place] (sex) can begin whenever both you and your partner feel comfortable and do not have any form of genital infection. It is recommended that you wait until after your return appointment and discuss with your physician. If you have questions, please talk to your health care practitioner. A condom should be used to prevent infection and . * Foreplay, gentle intercourse and lubrication is very important the first several times to prevent pain. A water-based lubricant such as K-Y jelly or Astroglide may be used. * Tampons may be used six weeks after delivery. * Douching should be avoided for 6 weeks after delivery. * If you have RH negative blood and your baby is RH positive, you will receive RHOGAM by injection prior to discharge. The nurse will give you a card to keep with you that has the date and place that you received RHOGAM after delivery. * During your care, you had a Rubella screen done to check for the presence of rubella antibodies in your blood. If your test was negative, you will receive a Rubella vaccine prior to discharge. This vaccine may cause a fever, soreness at the injection site and flu-like symptoms. If these symptoms persist, notify your health care practitioner. is not advised for three months after a Rubella vaccine. There is a higher chance of having a baby with defects if conceived within three months of getting the vaccine. * If you were discharged 24 hours from delivery or before 48 hours: Visiting nurses will come to your home 48 hours after discharge to assess you and your baby. The visiting nurse will meet with you while you are in the hospital to arrange a time and get directions to your home. * Verbalizes understanding of car seat law as reviewed with patient nursing. * Car Seat hand-out given and reviewed with patient by nursing. * Shaken baby information reviewed with patient by nursing. Call you doctor if: * Heavy bleeding (saturating several pads an hour) or passing clots the size of your fist. * A fever >101 degrees F (38.3 degrees C) on two occasions four hours apart and/or chills. * Unusual pain in the pelvic or vaginal areas. * "Baby Blues" lasting longer than two weeks. If you have any questions or concerns, call your health care practitioner at . FOLLOW-UP VISIT: * Please call the office at to schedule a 6 week examination. It is important you keep this appointment. * It is important for you to make arrangements for either yearly or twice yearly check-ups thereafter. . Current Hospital Diet Patient's current hospital diet: Regular OB Diet Discharge Diet Recommended Diet: Regular Diet Pending Studies Studies pending at discharge: no Medical Emergencies . Who to Call and When: Medical Emergencies: If at any time you feel your situation is an emergency, please call 911 immediately. . Non-Emergent Contact Non-Emergency issues call your: Surgeon, Specialist Call Non-Emergent contact if: you have a fever, temperature is above 100.5, your pain is not controlled, your pain is worsening, your pain is concerning you , you have any medication questions . . "Provider Documentation" section prepared by Ryan Couch. . VTE Core Measure Inpt VTE Proph given/why not?: Treatment not indicated
[2017-02-24] MEDS: PRENATAL VITAMIN TAB PO SCH (08:19)
[2017-02-24] MEDS: DOCUSATE SODIUM 100 MG CAP PO SCH (08:19)
[2017-02-24 08:20] VITALS: O2SAT 99
[2017-02-24] MEDS: IBUPROFEN 600 MG TAB PO PRN (09:32)
[2017-02-24] MEDS ORDERED: MAGNESIUM HYDROXIDE SUSP 30 ML UDC PO ONE (10:30)
--- NOTE | 2017-02-24 10:33 | OB/GYN Progress Note ---
SENIOR SALES ADMINISTRATOR Progress Note Date of Service: Feb 24, 2017. I was called that she developed new onset pain about 45 min ago She states I am fine now. She has small BM and her pain started n her right groin/ pubic area That was her 1st BM since delivery She states " I have poop more but do not want to. I do not want to get hemorrhoids" Pain is now 2/10, dull It was 7-8 / 10 earlier She denies fever/ chills/ n&V She ate her breakfast this morning without problems. PE: VSS Afebrile She is smiling in bed Abd: soft, NT, NT, Fundus firm, NT, no rebound Groins/ pubic bone NT Ext: NT, no edema, full hip ROM bilaterally with no tenderness VE: no VB. Vagina intact, firm stool in rectum+, no hemorrhoids AP: 27 yo s/p , ppd#2, with abdominal pain Most likely constipated Does not seem to be appendicitis Discussed work up with Abdominal US or CT if needed, declines and likes t be discharged today Discussed Dulcolax supp, MOM to help and she likes to try those
[2017-02-24 12:30] VITALS: BP_DIAS 78; PULSE 88; TEMP 36.7
== END 2017-02-24 12:40 | disposition home or self-care (01) | DRG 775 ==
LOC: C.LD 07:52 → C.OBG 23:36
PROVIDERS: ADMIT Obstetrics & Gynecology; ATTEND Obstetrics & Gynecology
PROC: 3E033VJ Introduction of Other Hormone into Peripheral Vein, Percutaneous Approach (ICD-10-PCS; principal; 2017-02-22)
PROC: 10E0XZZ Delivery of Products of Conception, External Approach (ICD-10-PCS; principal; 2017-02-22)
DX: O48.0 Post-term pregnancy (principal); Z3A.40 40 weeks gestation of pregnancy; Z37.0 Single live birth

== ENCOUNTER 2018-10-26 02:49 | Inpatient (IN) ==
[2018-10-26] MEDS ORDERED: OXYTOCIN 30 UNITS/500 ML BAG IV PRN ×2 (03:02→11:21)
[2018-10-26] MEDS ORDERED: BUPIVACAINE 0.25% 30 ML VIAL ONE (03:13)
[2018-10-26] MEDS ORDERED: fentaNYL citrate 100 MCG/2 ML VIAL ONE (03:13)
[2018-10-26] MEDS ORDERED: ePHEDrine sulfate 50 MG/ML AMP ONE (03:13)
[2018-10-26] MEDS: LACTATED RINGER'S 1,000 ML IV PRN ×2 (03:14→05:11)
[2018-10-26] MEDS ORDERED: fentaNYL 2MCG/ML ROPIV 1.25MG/ML 100 ML BAG EPI ONE (03:14)
[2018-10-26 03:18] LABS: Hematocrit (blood only) 33.1 % (37-47); Hemoglobin 11.3 g/dL (12.0-16.0); Mean Corpuscular Volume 90.2 fL (80-100); Mean Platelet Volume 11.3 fL (7.4-10.4); Platelet Count 249 K/uL (130-400); RDW Coefficient of Variation 13.5 % (11.5-14.5); RDW Standard Deviation 44.4 fL (36.4-46.3); Red Blood Count 3.67 M/uL (4.2-5.4); White Blood Count 20.52 K/uL (4.8-10.8)
[2018-10-26 03:21] LABS: Mean Corpuscular Hgb Conc 34.1 g/dL (32-36)
--- NOTE | 2018-10-26 03:36 | Anesthesiology Consultation ---
Date of Service October 26, 2018 Assessment & Plan (1) Encounter for pre-operative examination: Chart Review Chart Review: Patient NOT seen in Pre Admission Testing and Acceptable Risk for Labor Epidural Consults Requested none ASA ASA2 Proposed Anesthesia Anesthesia Type: Labor Epidural Risk / Benefits Reviewed With: PT / POA / Parent / Guardian, Accepts Plan and Informed Consent Obtained History Height/Weight Height: 5 ft 4 in Weight: 84.822 kg Allergies Allergy/AdvReac Type Severity Reaction Status Date / Time adhesive Allergy Unknown RASH Verified 10/26/18 00:26 morphine Allergy Unknown HIVES Verified 10/26/18 00:26 Medications Home Medications Medication Instructions Recorded Confirmed Last Taken PNV cmb#95-ferrous fumarate-FA 1 tab PO DAILY 05/02/18 10/26/18 1 Day Ago [] ~10/25/18 escitalopram oxalate [Lexapro] 5 mg PO DAILY 05/02/18 10/26/18 Unknown oxycodone-acetaminophen 1 tab PO DIRECTED 10/26/18 10/26/18 Unknown Active Medications Generic Name Dose Route Start Last Admin Trade Name Freq PRN Reason Stop Dose Admin Lactated Ringer's 1,000 mls @ 125 mls/hr 10/26/18 03:02 10/26/18 03:14 Lr IV 10/28/18 03:01 999 mls/hr .Q8H PRN Administration L&D Protocol Protocol NPO Date Last Intake of Fluids: 10/26/18 Time Last Intake of Fluids: 03:32 Date Last Intake of Solids: 10/25/18 Time Last Intake of Solids: 18:30 Past Medical History Medical History Anxiety (Chronic) Asthma (Chronic) SAB (spontaneous ) 2006,2016 (spontaneous vaginal delivery) x2 2006,2017 Exercise / Class Metabolic Activity II 4-5 Yardwork/Stairs/Walk up hill Past Surgical History Surgical History History of tonsillectomy and adenoidectomy (Resolved) History of cholecystectomy (Resolved) Past Anesthesia History No Hx of Anesthesia Complications History of PONV No Hx of PONV and No Hx of Motion Sickness Social History Smoking Status: Current every day smoker tobacco type: cigarettes Smoking cigarettes per day: 4 Do You Dip or Chew Tobacco: No Hx Alcohol Use: No Hx Substance Use: No Review of Systems Negative for chest pain or shortness of breath. Patient denies active symptoms of GERD. Physical Exam Vital Signs Last Vital Signs Temp 36.7 C 10/26/18 03:20 Pulse 69 10/26/18 03:20 Resp 20 10/26/18 03:20 BP 126/71 10/26/18 03:20 Constitutional not obese (Gravid uterus) ENMT Mouth: no TMJ abnormality and oral opening not small Thyromental Distance: > or= 3.5 Finger Breadths Mallampati Class: I Neck normal visual inspection; neck extension not limited Respiratory normal respiratory effort Auscultation: lungs clear to auscultation bilaterally Cardiovascular Rate/Rhythm: regular rate and regular rhythm Heart Sounds: no murmur Neurologic moves all extremities Psychiatric Orientation: alert and oriented x 3 Testing Laboratory Results 10/26/18 03:10
[2018-10-26] MEDS ORDERED: ePHEDrine sulfate 50 MG/ML AMP IV PRN (04:20)
[2018-10-26] MEDS ORDERED: NALOXONE HCL 1 MG in SODIUM CHLORIDE 0.9% 1000ML 1,000 ML IV PRN (04:20)
[2018-10-26] MEDS ORDERED: ONDANSETRON INJ 2 MG/ML 2 ML VIAL IV PRN (04:20)
[2018-10-26] MEDS ORDERED: fentaNYL 2MCG/ML ROPIV 1.25MG/ML 100 ML BAG EPI PRN (04:20)
[2018-10-26] MEDS ORDERED: NALBUPHINE HCL INJ 10 MG/ML AMP IV PRN (04:20)
[2018-10-26] MEDS ORDERED: DiphenhydrAMINE HCL 50 MG/ML VIAL IV PRN (04:20)
[2018-10-26] MEDS ORDERED: NALOXONE HCL 0.4 MG/1 ML VIAL/CARP IV PRN (04:20)
--- NOTE | 2018-10-26 07:04 | Labor Progress Brief Note ---
Date of Service October 26, 2018 Pt doing well Epidural analgesia in place FHR: CAT1 Ctx; 4-6 mins VE; was unchanged since admission Pt agreed to AROM AROM- Clear. Very little amniotic fluid seen Bedside sono; VT; Very little fluid as well Plan continue with labor Results & Data Vital Signs (Past 12 Hours) Vital Signs Temp Pulse Resp BP Pulse Ox 10/26/18 06:56 77 101/51 L 10/26/18 06:55 90 96 10/26/18 06:50 74 97 10/26/18 06:45 88 97 10/26/18 06:40 80 121/57 L 96 10/26/18 06:35 70 96 10/26/18 06:33 83 124/63 10/26/18 06:30 79 88/53 L 95 10/26/18 06:25 67 87/50 L 96 10/26/18 06:20 75 97 10/26/18 06:15 68 96 10/26/18 06:10 79 86/48 L 96 10/26/18 06:05 86 97 10/26/18 06:00 75 20 96 10/26/18 05:55 69 96 10/26/18 05:54 69 97/55 L 10/26/18 05:50 74 96 10/26/18 05:45 72 96 10/26/18 05:40 71 96 10/26/18 05:39 71 99/56 L 10/26/18 05:35 74 96 10/26/18 05:30 75 95 10/26/18 05:25 71 100/56 L 96 10/26/18 05:20 70 95 10/26/18 05:15 75 95 10/26/18 05:11 72 104/58 L 10/26/18 05:10 72 96 10/26/18 05:05 73 96 10/26/18 05:00 73 20 96 10/26/18 04:56 74 106/58 L 10/26/18 04:55 69 96 10/26/18 04:50 72 96 10/26/18 04:45 75 98 10/26/18 04:40 72 113/65 98 10/26/18 04:35 79 97 10/26/18 04:30 77 20 98 10/26/18 04:25 74 98 10/26/18 04:24 67 113/62 10/26/18 04:20 36.7 C 75 20 97 10/26/18 04:17 69 107/55 L 10/26/18 04:15 76 20 103/53 L 97 10/26/18 04:13 69 85/49 L 10/26/18 04:11 74 85/51 L 10/26/18 04:10 76 20 93/54 L 98 10/26/18 04:09 77 85/50 L 10/26/18 04:07 78 108/60 10/26/18 04:05 84 20 106/57 L 98 10/26/18 04:03 79 113/56 L 10/26/18 04:01 73 20 115/59 L 10/26/18 04:00 75 99 10/26/18 03:59 77 115/58 L 10/26/18 03:58 20 10/26/18 03:57 80 130/61 10/26/18 03:55 76 20 114/74 99 10/26/18 03:50 75 100 10/26/18 03:45 60 99 10/26/18 03:42 75 93 10/26/18 03:40 72 100 10/26/18 03:35 70 100 10/26/18 03:20 36.7 C 69 20 126/71 10/26/18 02:56 69 126/71
--- NOTE | 2018-10-26 09:13 | History and Physical Report ---
DATE OF ADMISSION: 10/26/2018 HISTORY OF PRESENT ILLNESS: The patient is a 28-year-old G5, P2, due date 11/01/2018 making her 39 weeks on 10/25/2018. The patient presented to labor and delivery with contractions every 4-5 minutes. It was a second visit to labor and delivery in the last 24 hours. She was examined and found to be 4 cm dilated. Decision was therefore made to admit the patient. She had no shortness of breath, no chills, no rupture of membranes. No bloody show. COURSE: Has been unremarkable. LABORATORIES: Blood type A positive, antibody negative, rubella immune, GBS negative. PAST MEDICAL HISTORY: History of convulsions and concussions as well as hypoglycemia. PAST SURGICAL HISTORY: History of tonsillectomy and laparoscopic cholecystectomy. SOCIAL HISTORY: The patient is a smoker. Denies drug or alcohol use. FAMILY HISTORY: Noncontributory. OBSTETRIC-GYNECOLOGIC HISTORY: The patient has had 2 spontaneous vaginal deliveries in 2007 and 2016. ALLERGIES: THE PATIENT IS ALLERGIC TO MORPHINE. PHYSICAL EXAMINATION: GENERAL: Well-developed, well-nourished white female in no acute distress. HEART: S1, S2, regular rhythm and rate. LUNGS: Clear to auscultation bilaterally. ABDOMEN: Gravid. PELVIC: Exam by nurse on admission is 4 cm, 90% effaced and -2 station. EXTREMITIES: No cyanosis, clubbing or edema. ASSESSMENT AND PLAN: A 28-year-old 5, para 2, at 39 weeks, . The patient is admitted. We anticipate a vaginal delivery. IHSAN
[2018-10-26] MEDS ORDERED: METHYLERGONOVINE MALEATE 0.2 MG/ML AMP ONE (11:15)
[2018-10-26] MEDS ORDERED: miSOPROStol 200 MCG TAB ONE (11:15)
[2018-10-26] MEDS ORDERED: miSOPROStol 200 MCG TAB PR ONE (11:21)
[2018-10-26] MEDS ORDERED: METHYLERGONOVINE MALEATE 0.2 MG/ML AMP IM ONE (11:21)
[2018-10-26] MEDS ORDERED: BENZOCAINE 20% AER SPR 82.5 GM CAN EXT PRN (11:21)
[2018-10-26] MEDS ORDERED: SUPERCREAM 0.870% 15 GM JAR EXT PRN (11:21)
[2018-10-26] MEDS ORDERED: HYDROCORTISONE ACETATE 25 MG SUPP PR PRN (11:21)
[2018-10-26] MEDS ORDERED: DIPHTHERIA/TETANUS/PERTUSSIS 0.5 ML SYR/VIAL IM ONE (11:21)
[2018-10-26] MEDS ORDERED: BISACODYL 10 MG SUPP PR PRN (11:21)
--- NOTE | 2018-10-26 14:14 | Anesthesia Procedure Note ---
Date of Service October 26, 2018 Anesthesia Post Epidural Note Vital Signs Vital Signs: Temp Pulse Resp BP Pulse Ox 98.2 F 75 22 106/58 L 99 10/26/18 09:41 10/26/18 12:54 10/26/18 09:41 10/26/18 12:54 10/26/18 11:20 Notes Mental Status: alert / awake / arousable and participated in evaluation Nausea / Vomiting: adequately controlled Pain: adequately controlled Airway Patency, RR, SpO2: stable & adequate BP & HR: stable & adequate Hydration State: stable & adequate Neuraxial Anesthesia: was administered and sensory block is resolving Anesthetic Complications: no major complications apparent and Pt Satisfied with anesthetic care Epidural: Removed without complications and With tip intact
[2018-10-26] MEDS: IBUPROFEN 600 MG TAB PO PRN ×2 (16:51→20:49)
[2018-10-26] MEDS: DOCUSATE SODIUM 100 MG CAP PO SCH (20:49)
[2018-10-26] MEDS ORDERED: CALCIUM CARBONATE 500 MG CHEWABLE TAB PO PRN (23:27)
[2018-10-26] MEDS ORDERED: CALCIUM CARBONATE 500 MG CHEWABLE TAB ONE (23:32)
[2018-10-27] MEDS: IBUPROFEN 600 MG TAB PO PRN ×4 (03:06→19:00)
[2018-10-27 06:45] LABS: Hematocrit (blood only) 32.4 % (37-47); Hemoglobin 10.9 g/dL (12.0-16.0); Mean Corpuscular Hgb Conc 33.6 g/dL (32-36); Mean Corpuscular Volume 91.3 fL (80-100); Mean Platelet Volume 11.8 fL (7.4-10.4); Platelet Count 217 K/uL (130-400); RDW Standard Deviation 46.2 fL (36.4-46.3); Red Blood Count 3.55 M/uL (4.2-5.4); White Blood Count 18.95 K/uL (4.8-10.8)
--- NOTE | 2018-10-27 06:47 | Delivery Summary ---
DATE OF OPERATION: 10/26/2018 The patient delivered a live infant male in right occiput anterior presentation. There was no nuchal cord. was delivered, placed on mother's abdomen. Cord was clamped and cut after 1 minute. Cord blood was obtained. Placenta was spontaneously delivered. Inspection of placenta shows a normal grossly looking placenta. There was, however, suspected oligohydramnios since admission. Inspection of the perineum showed no laceration or tears. Rectal exam post-delivery showed good sphincter tone. Estimated blood loss is 600 mL. All instruments were removed from the vagina and accounted for including retractors and sponges. Baby and mother are doing well in recovery. I attest to the content of the Intraoperative Record and any orders documented therein. Any exception s are noted below.
[2018-10-27] MEDS: DOCUSATE SODIUM 100 MG CAP PO SCH ×2 (07:40→20:46)
[2018-10-27] MEDS: PRENATAL VITAMIN 1 TAB PO SCH (07:40)
[2018-10-27] MEDS: FERROUS SULFATE 325 MG TAB PO SCH (07:40)
--- NOTE | 2018-10-27 09:14 | Obstetrical Progress Note ---
Date of Service October 27, 2018 Subjective doing well no pain or significant bleeding tolerating diet Physical Exam Constitutional: WD/WN, vitals as above comfortable abdomen soft non-tender fundus firm no edema neg Saji's for d/c in AM Results & Data Vital Signs (Past 12 Hours) Vital Signs Temp Pulse Resp BP Pulse Ox 10/27/18 07:39 36.6 C 64 18 113/73 98 10/27/18 03:10 36.5 C 73 18 114/74 10/26/18 23:30 36.5 C 71 18 113/73
[2018-10-27] MEDS ORDERED: BISACODYL 5 MG TABEC PO SCH (20:00)
[2018-10-28] MEDS: IBUPROFEN 600 MG TAB PO PRN ×3 (01:19→11:36)
[2018-10-28] MEDS: ACETAMINOPHEN 325 MG TAB PO PRN ×2 (05:25→10:47)
[2018-10-28 06:51] LABS: Hematocrit (blood only) 31.1 % (37-47); Hemoglobin 10.5 g/dL (12.0-16.0)
[2018-10-28] MEDS: PRENATAL VITAMIN 1 TAB PO SCH (08:20)
[2018-10-28] MEDS: FERROUS SULFATE 325 MG TAB PO SCH (08:20)
[2018-10-28] MEDS: DOCUSATE SODIUM 100 MG CAP PO SCH (08:20)
--- NOTE | 2018-10-28 13:05 | Obstetrical Progress Note ---
Date of Service October 28, 2018 Assessment & Plan (1) normal course: Pt doing well no complaints d/c home with instructions Results & Data Vital Signs (Past 12 Hours) Vital Signs Temp Pulse Resp BP Pulse Ox 10/28/18 11:42 36.5 C 72 18 130/75 98 10/28/18 07:20 36.5 C 72 18 130/75 98
== END 2018-10-28 14:50 | disposition home or self-care (01) | DRG 807 ==
LOC: OPB 02:49 → 4S1 02:53 → 4S2 16:10